=== PATIENT | female | born 1955 | race Caucasian/White ===

== ENCOUNTER 2017-08-07 07:28 | Inpatient (IN) | payer OTHER ==
[~2017-08-07] VITALS: Ht 170.2 cm; Wt 110.7 kg
[2017-08-07] MEDS ORDERED: CEFAZOLIN 2 GM IVPB PREMIX 50 ML IV ONE (07:45)
[2017-08-07] MEDS ORDERED: oxyCODONE HCL 10 MG TAB.ER.12H PO ONE ×2 (07:45→08:16)
[2017-08-07] MEDS ORDERED: ACETAMINOPHEN 500 MG TABLET PO ONE (07:45)
[2017-08-07] MEDS ORDERED: TRANEXAMIC ACID 650 MG TABLET PO ONE (07:45)
[2017-08-07] MEDS ORDERED: GABAPENTIN 300 MG CAPSULE PO ONE (07:45)
[2017-08-07] MEDS ORDERED: CELECOXIB 200 MG CAPSULE PO ONE (07:45)
[2017-08-07] MEDS ORDERED: NACL 0.9% 1,000 ML IV ONE (07:45)
[2017-08-07] MEDS ORDERED: CELECOXIB 200 MG CAPSULE ONE (08:14)
[2017-08-07] MEDS ORDERED: GABAPENTIN 300 MG CAPSULE ONE (08:15)
[2017-08-07] MEDS ORDERED: ACETAMINOPHEN 500 MG TABLET ONE (08:15)
[2017-08-07] MEDS ORDERED: TRANEXAMIC ACID 650 MG TABLET ONE (08:16)
[2017-08-07] MEDS ORDERED: POLYMYXIN 500,000/BACIT.10,000 UNITS in NS IRR 1 L IR ONE (09:18)
[2017-08-07] MEDS ORDERED: HYDR-3924 PO (10:22)
[2017-08-07] MEDS ORDERED: OMEP20CA10 PO (10:22)
[2017-08-07] MEDS ORDERED: OCUVITE PO (10:22)
[2017-08-07] MEDS ORDERED: FENO48TA4 PO (10:22)
[2017-08-07] MEDS ORDERED: AMIT10TA6 PO (10:22)
[2017-08-07] MEDS ORDERED: MIDAZOLAM HCL 5 MG/5 ML VIAL IVP PRN (11:30)
[2017-08-07] MEDS ORDERED: MEPERIDINE HCL/PF 25 MG/ML DISP.SYRIN IVP PRN (11:30)
[2017-08-07] MEDS ORDERED: MORPHINE 4 MG/ML INJ. SYRINGE IVP PRN (11:30)
[2017-08-07] MEDS ORDERED: NALOXONE HCL 0.4 MG/ML AMP (NARCAN) IVP ONE (11:30)
[2017-08-07] MEDS ORDERED: fentaNYL CITRATE/PF 100 MCG/2 ML AMP IVP PRN (11:30)
[2017-08-07] MEDS ORDERED: KETOROLAC TROMETHAMINE 30 MG VIAL IM ONE (11:30)
[2017-08-07] MEDS ORDERED: ONDANSETRON HCL 4 MG/2 ML VIAL IVP ONE ×2 (11:30→12:58)
[2017-08-07] MEDS ORDERED: D5/0.45 NS 1,000 ML IV ONE (11:57)
[2017-08-07] MEDS ORDERED: ACETAMINOPHEN 325 MG TABLET PO PRN (12:00)
[2017-08-07] MEDS ORDERED: BISACODYL 10 MG/SUPPOSITORY RC PRN (12:00)
[2017-08-07] MEDS ORDERED: LIDOCAINE 1% 10 MG/ML, 20 ML MDV INJ ONE (12:58)
[2017-08-07] MEDS ORDERED: DEXAMETHASONE SOD PHOSPHATE 4 MG/ML VIAL IVP ONE (12:58)
[2017-08-07] MEDS ORDERED: fentaNYL CITRATE 250 MCG/5 ML AMP IV ONE (12:58)
[2017-08-07] MEDS ORDERED: ROPIVACAINE HCL/PF 5 MG/ML 0.5% 30 ML VIAL INJ ONE (12:58)
[2017-08-07] MEDS ORDERED: KETOROLAC TROMETHAMINE 30 MG VIAL IVP ONE (12:58)
[2017-08-07] MEDS ORDERED: PROPOFOL 200MG/ 20ML VIAL (DIPRIVAN) IV ONE (12:58)
[2017-08-07] MEDS ORDERED: TRANEXAMIC ACID 1,000 MG/10 ML VIAL IV ONE (12:58)
[2017-08-07] MEDS ORDERED: LR 1,000 ML IV.SOLN IV ONE (12:58)
[2017-08-07] MEDS ORDERED: MEPERIDINE HCL/PF 100 MG/ML AMP IM ONE (12:58)
[2017-08-07] MEDS ORDERED: SEVOFLURANE 15 MIN GAS INH ONE (12:58)
[2017-08-07] MEDS ORDERED: MIDAZOLAM HCL 5 MG/ML VIAL (VERSED) IV ONE (12:58)
[2017-08-07] MEDS ORDERED: ROPIVACAINE 0.2% (NAROPIN) PF SOLUTION 100 ML BOTTLE EP ONE (12:58)
[2017-08-07] MEDS ORDERED: fentaNYL CITRATE/PF 100 MCG/2 ML AMP ONE (13:05)
[2017-08-07] MEDS ORDERED: MEPERIDINE HCL/PF 25 MG/ML DISP.SYRIN ONE (13:43)
--- NOTE | 2017-08-07 14:15 | NUR ---
ADMISSION NOTE Received patient from the PACU via gurney. Patient admitted with diagnosis of LTKA. Patient is awake, alert, oriented X4 . Patient oriented to hospital room, call light, toileting, pain management and safety-teach back done. Patient informed that Florencia will be her nurse and that their room number is 124-a. Personal belongings checked and Belongings List documented. Call light within reach.
[2017-08-07 14:19] VITALS: BP_SYST 153
--- NOTE | 2017-08-07 14:42 | NUR ---
CONSULT HOSPITALIST S/P WILIAM HIGHTOWER [phone] S/W LALA
[2017-08-07] MEDS: MORPHINE SULFATE 10 MG/ML VIAL IM PRN ×2 (16:01→20:06)
[2017-08-07 16:35] VITALS: BP_SYST 150
--- NOTE | 2017-08-07 16:42 | NUR ---
IS education Patient instructed on how to use the IS. Patient returned demonstration and is doing up to 1999.
[2017-08-07] MEDS: RIVAROXABAN 10 MG TABLET PO SCH (16:54)
[2017-08-07] MEDS: CEFAZOLIN 1 GM IVPB PREMIX 50 ML IV SCH ×2 (16:54→23:25)
[2017-08-07] MEDS: HYDROcodone/ACETAMIN 7.5-325 MG TAB PO PRN (17:55)
--- NOTE | 2017-08-07 18:20 | NUR ---
Closing Note Patient is resting in bed. IV is on the LFA 22g running NS@125. Left pedal pulse is palpable and the patient is able to move all the toes on the left foot. Flexi pulses and polar care are in place. call light is within reach and bed is in low position. Will endorse care to the oncoming nurse.
[2017-08-07 20:00] VITALS: BP_SYST 130
--- NOTE | 2017-08-07 20:06 | NUR ---
INITIAL CONTACT patient is alert oriented x4. IV on left forearm 20G, infusing NS at 125ml/hr. dressing on left knee clean, dry, intact. Hemovac draining red color fluid. neurovascular check done. patient complaining of pain 09/26. pain medication administered. plan of care discussed and advised patient to call PRN. patient verbalized understanding. will continue to monitor.
--- NOTE | 2017-08-07 20:45 | NUR ---
EDUCATION educated patient the importance of using IS. patient states that she knows that she has to use IS frequently, and she used it up to 3000. also educated patient the importance of keeping pillow under heel to keep leg straight and ambulating as soon as possible. also informed patient that she would need to eat sitting in chair instead of lying in bed. patient verbalized understanding.
[2017-08-07 21:15] VITALS: BP_SYST 131
--- NOTE | 2017-08-07 21:40 | NUR ---
ROUNDS patient sleeping, but easily aroused. patient states her pain is "okay." no distress noted. advised patient to call PRN. patient verbalized understanding. will continue to monitor.
--- NOTE | 2017-08-07 23:30 | NUR ---
ROUNDS patient awake, listening to audio book. patient denies pain. advised patient to call PRN. patient verbalized understanding. will continue to monitor.
[2017-08-08] MEDS: MORPHINE SULFATE 10 MG/ML VIAL IM PRN ×6 (01:16→21:12)
[2017-08-08 01:18] VITALS: BP_SYST 119
--- NOTE | 2017-08-08 01:57 | NUR ---
ROUNDS patient states that her pain is 2/10, no distress noted. advised patient to call PRN. patient's pillow adjusted under heel. will continue to monitor.
--- NOTE | 2017-08-08 04:35 | NUR ---
ROUNDS patient sleeping in bed, breathing even and unlabored. will continue to monitor. bed in lowest position, call light within reach, bed alarm on.
[2017-08-08 04:44] VITALS: BP_SYST 107
--- NOTE | 2017-08-08 06:30 | NUR ---
ROUNDS patient complained of 7/10 pain, morphine administered per order. patient's pillow readjusted to be placed under the heel. patient requested to be turned to right side. pillow placed on patient's left side. will continue to monitor. bed in lowest position, call light within reach.
--- NOTE | 2017-08-08 07:10 | NUR ---
TRANSFER TO CHAIR patient assisted transfer to chair. patient tolerated well. pillow placed under patient's heel, call light within reach. will continue to monitor.
--- NOTE | 2017-08-08 07:39 | NUR ---
END OF SHIFT Care endorsed to Florencia ESCOBEDO. informed her that patient is sitting on chair. no distress noted with patient.
--- NOTE | 2017-08-08 07:49 | NUR ---
Nutrition Update Bijan Scale 18 noted. Pt admitted for Pain in L knee Diet: regular diet BMI: 38.2 kg/m2 RD to follow per nutrition care standards.
[2017-08-08] MEDS: HYDROcodone/ACETAMIN 7.5-325 MG TAB PO PRN ×4 (08:40→20:14)
[2017-08-08] MEDS: RIVAROXABAN 10 MG TABLET PO SCH (08:40)
--- NOTE | 2017-08-08 08:45 | NUR ---
Pain med Medicated the patient with [place] for 6/10 pain. Will reassess.
[2017-08-08 09:10] VITALS: BP_SYST 116
--- NOTE | 2017-08-08 09:15 | NUR ---
TRANSFER OF CARE LATE ENTRY DUE TO PT CARE: REPORT IS RECEIVED FROM DAY SHIFT NURSE AND CARE IS ENDORSED TO MYSELF. PT IS RECEIVED AWAKE, ALERT, AND ORIENTED X4. NO SIGNS OR SYMPTOMS OF DISTRESS OR SOB NOTED. PT IS COMPLAINING OF PAIN IN KNEE AREA OF 8 OUT OF 10. WILL GIVE PRN PAIN MEDICATION WHEN DUE. WHITE BOARD IS UPDATED WITH CURRENT INFORMATION AND PLAN TO MANAGE PAIN WITH TIMES WRITTEN ON WHITE BOARD. PT HAS CPM MACHINE AND POLAR CARE. PT HAS SINGH CATHETER WITH YELLOW URINE DRAINING TO GRAVITY, APPROXIMATELY 200ML OF URINE. CURRENT NEEDS ARE MET. BED IS AT LOWEST POSITION, CALL LIGHT WITHIN REACH, THREE SIDE RAILS UP, BED ALARM IS ON. WILL CONTINUE TO MONITOR.
--- NOTE | 2017-08-08 10:45 | NUR ---
ROUNDS LATE ENTRY DUE TO PT CARE: PT IS AWAKE AND ALERT. NO SIGNS OR SYMPTOMS OF DISTRESS OR SOB NOTED. PT IS COMPLAINING OF PAIN ON LEFT KNEE OF 8 OUT OF 10 AND GAVE PRN MORPHINE IM. PT TOLERATED WELL. WILL REASSESS. CURRENT NEEDS ARE MET. BED IS AT LOWEST POSITION, CALL LIGHT WITHIN REACH, THREE SIDE RAILS UP, BED ALARM IS ON. WILL CONTINUE TO MONITOR.
[2017-08-08 12:28] VITALS: BP_SYST 99
--- NOTE | 2017-08-08 12:40 | NUR ---
ROUNDS LATE ENTRY DUE TO PT CARE: PT IS AWAKE AND ALERT. NO SIGNS OR SYMPTOMS OF DISTRESS OR SOB NOTED. PT IS COMPLAINING OF PAIN ON LEFT KNEE OF 6 OUT OF 10 AND GAVE PRN NORCO. PT TOLERATED WELL. NUEROVASCULAR CHECK DONE ON LOWER EXTREMITIES. PT IS ABLE TO WIGGLE TOES, PULSES ON FEET WERE FELT BILATERALLY. CURRENT NEEDS ARE MET. BED IS AT LOWEST POSITION, CALL LIGHT WITHIN REACH, THREE SIDE RAILS UP, BED ALARM IS ON. WILL CONTINUE TO MONITOR.
--- NOTE | 2017-08-08 13:30 | NUR ---
PT WANTS TO REMOVE CPM PT STATES SHE WANTS TO TAKE A BREAK FROM CPM. PHYSICAL THERAPIST REMOVED MACHINE. WILL CHECK PT TO APPLY CPM BACK ON.
--- NOTE | 2017-08-08 14:59 | NUR ---
62 f dx elective left knee replacement by dr ordoñez. [phone]. fww and cpm ordered from [facility]. [phone]. bryson mosher rn/cm t [phone]
--- NOTE | 2017-08-08 15:33 | NUR ---
PHYSICAL THERAPY CO-SIGN The Physical Therapy Progress Notes documented by Muffler Mechanic have been reviewed. I CONCUR W/MANUFACTURER'S REPRESENTATIVE NOTE; CONT PER TX PLAN Reviewed/Co-Signed by: China Deras PT Documentation Done by: VIN BOWEN, OLIVIA Addendum: 08/08/17 at 1534 by China Deras PT Amended: Links added.
[2017-08-08 16:15] VITALS: BP_SYST 102
--- NOTE | 2017-08-08 16:15 | NUR ---
ROUNDS PT IS AWAKE AND ALERT. NO SIGNS OR SYMPTOMS OF DISTRESS OR SOB NOTED. PT IS COMPLAINING OF PAIN ON LEFT KNEE OF 6 OUT OF 10 AND GAVE PRN NORCO. WILL REASSESS. ASSISTED PT WITH REPOSITIONING. CONDUCTED NEUROVASCULAR CHECKS ON LOWER EXTREMITIES. PT IS ABLE TO WIGGLE HER TOES, PEDAL PULSES PRESENT, TOES ARE WARM TO TOUCH BILATERALLY. CURRENT NEEDS ARE MET. BED IS AT LOWEST POSITION, CALL LIGHT WITHIN REACH, THREE SIDE RAILS UP, BED ALARM IS ON. WILL CONTINUE TO MONITOR.
--- NOTE | 2017-08-08 18:09 | NUR ---
CLOSING NOTE PT IS SLEEPING BUT IS EASILY AWAKEN. SPOUSE IS AT BEDSIDE. NO SIGNS OR SYMPTOMS OF DISTRESS OR SOB NOTED. PT STATES PAIN HAS REDUCED AND IS CURRENTLY TOLERABLE. INCENTIVE SPIROMETER IS BEING DONE DONE HOURLY AND PT IS AT 2000ML. ICE WAS PLACED ON [facility] MACHINE. PT ASSISTED WITH REPOSITIONING AND TOWEL WAS PLACED AROUND FOOT TO PREVENT IT FROM GOING OUTWARD. SINGH CATHETER DRAINING TO GRAVITY. CURRENT NEEDS ARE MET. BED IS AT LOWEST POSITION, CALL LIGHT WITHIN REACH, THREE SIDE RAILS UP, BED ALARM IS ON. WILL CONTINUE TO MONITOR.
[2017-08-08 20:00] VITALS: BP_SYST 131
--- NOTE | 2017-08-08 20:14 | NUR ---
Opening note Pt AAOx4. VSS afebrile. No acute distress noted. Pt c/o L. knee post op pain. Medicated with [place] 1tab PRN. Polar ice on. CPM machine stopped per pt request and removed. Pillow placed under L. heel. Moise cath intact and secure. IV saline lock L. AC 20G clear, patent. Call light within reach, bed low, locked position, and bed alarm on. Call light/items within easy reach. Family at bedside. Will continue to monitor pt.
--- NOTE | 2017-08-08 21:12 | NUR ---
Rounds/Pain mgmt Pt awake, c/o pain 10/27, medicated with Morphine 10mg IM as ordered. L. heel maintained elevated on pillow for support. Immediate pain relief noted per pt. Family at bedside. Call light within reach. To monitor.
[2017-08-09 00:06] VITALS: BP_SYST 124
--- NOTE | 2017-08-09 00:30 | NUR ---
Rounds Pt asleep. No s/s distress or discomfort noted. Call light within reach. Bed alarm on. To monitor.
[2017-08-09] MEDS: HYDROcodone/ACETAMIN 7.5-325 MG TAB PO PRN ×3 (01:12→12:35)
--- NOTE | 2017-08-09 02:16 | NUR ---
Rounds/Pain mgmt Pt c/o pain 09/26. Medicated with Morphine 10mg IM RUE. L. heel maintained elevated. Neuro checks intact. Call light remains within reach. Will continue to monitor.
[2017-08-09] MEDS: MORPHINE SULFATE 10 MG/ML VIAL IM PRN ×2 (02:20→10:17)
--- NOTE | 2017-08-09 04:35 | NUR ---
Rounds Pt asleep. No s/s distress or discomfort noted. L. heel elevated on pillow. Polar ice on. Safety measures in place. Will continue to monitor pt.
[2017-08-09 06:31] LABS: BASOPHILS % (AUTO) 0.4 % (0.0-2.0); EOSINOPHILS # (AUTO) 0.2 K/uL (0.0-0.4); EOSINOPHILS % (AUTO) 1.8 % (0.0-4.0); HEMATOCRIT 30.9 % (36-48); HEMOGLOBIN 10.6 g/dL (12.0-16.0); LYMPHOCYTES # (AUTO) 2.2 K/uL (1.0-5.5); LYMPHOCYTES % (AUTO) 19.4 % (20.5-51.5); MEAN CORPUSCULAR HEMOGLOBIN 29 pg (27-31); MEAN CORPUSCULAR HGB CONC 34 % (32-36); MEAN CORPUSCULAR VOLUME 86 fL (79.0-98.0); MONOCYTES # (AUTO) 1.1 K/uL (0.0-1.0); MONOCYTES % (AUTO) 9.5 % (1.7-9.3); NEUTROPHILS % (AUTO) 68.9 % (40.0-70.0); PLATELET COUNT (AUTO) 228 K/uL (130-430); RED BLOOD CELL COUNT(AUTO) 3.62 MIL/uL (4.2-6.2); RED CELL DISTRIBUTION WIDTH 12.8 % (9.0-15.0); WHITE BLOOD COUNT (AUTO) 11.5 K/uL (4.8-10.8)
[2017-08-09 06:48] LABS: ALBUMIN 3.1 g/dL (3.4-4.8); CALCIUM 8.8 mg/dL (8.4-11.0); CREATININE 0.84 mg/dL (0.55-1.30); POTASSIUM 4.6 mmol/L (3.5-5.1); TOTAL BILIRUBIN 0.7 mg/dL (0.0-1.0)
--- NOTE | 2017-08-09 06:54 | NUR ---
Closing note/DC maciej Pt asleep, easily arousable. Pt states pain is 2/10, offered pain pill but pt declined. Maciej aldridge dc'd per MD order noted 150cc celina urine. L. heel elevated on pillow. L knee minnie c/d/i. Polar ice on. Call light within reach. Will endorse to am nurse. Addendum: 08/09/17 at 0703 by Yessi Weathers RN Pt tolerated well.
--- NOTE | 2017-08-09 08:00 | NUR ---
Note Dr Young at bedside doing left knee dressing change at this time. Left knee incision intact with no drainage/bleeding at this time. Pt tolerated dressing change well. Pt has her left heel on pillow. No SOB/resp distress or left leg pain/discomfort noted at this time. IV in left AC intact and patent.
[2017-08-09 08:02] VITALS: BP_SYST 111
[2017-08-09] MEDS: RIVAROXABAN 10 MG TABLET PO SCH (08:30)
[2017-08-09 09:45] VITALS: BP_SYST 129
--- NOTE | 2017-08-09 10:00 | NUR ---
Note Pt worked with Physical therapy on ambulation and exercise. Pt sitting in recliner. No needs noted. Pt was given Morphine IM for severe left leg pain. Call light within reach.
[2017-08-09 11:22] VITALS: BP_SYST 134
[2017-08-09 12:03] VITALS: BP_SYST 134
--- NOTE | 2017-08-09 13:52 | NUR ---
PAGED DR. MC SPOKE WITH SHALINI REGARDING ONE TIME DOSE OF PAIN MEDICATION.
[2017-08-09 13:57] VITALS: BP_SYST 110
--- NOTE | 2017-08-09 14:07 | NUR ---
Note Dr Young called back and gave an order for Percocet 1 tab now.
[2017-08-09] MEDS ORDERED: OXYCODONE/ACETAMINOPHEN *10*mg/325 mg TABLET PO ONE (14:15)
--- NOTE | 2017-08-09 14:50 | NUR ---
Note Pt ambulated from bed to restroom with FWW and SOFTWARE MANAGER assisting. Pt rec'd one dose of Percocet PO at this time. Pt's went back to the house to get pt some clothes. Pt's Yossi also was given pt's prescription to fill at this pharmacy. Pt resting in recliner at this time. No needs noted. Call light within reach.
--- NOTE | 2017-08-09 15:10 | NUR ---
Note Pt's belongings packed. Pt and her checked side table and drawers for belongings. Pt given discharge instructions. Questions/concerns were answered at this time. Pt assisted in getting dressed in street clothes. Pt's IV in left AC was dc'd - cath intact. Site benign. No swelling/redness/bleeding/drainage noted at this time. Call light within reach.
--- NOTE | 2017-08-09 15:15 | NUR ---
Note Pt off the floor via wheelchair with all her belongings and FWW. Pt stable. Pain tolerable at this time. Pt ambulates comfortably with walker to restroom. No SOB/resp or severe pain/discomfort noted at this time.
--- NOTE | 2017-08-10 12:52 | NUR ---
Discharge Follow Up Phone Call CLEARANCE REPRESENTATIVE phoned patient, , and spoke with patient's son. He stated that patient was doing okay. They were unable to fill her prescription for Xarelto because only generics are covered by patient's insurance. They have a call in to Dr Young asking for approval for a generic medication. CLEARANCE REPRESENTATIVE suggested they also try calling the PCP for help. The CPM has been delivered but they had not heard from [facility]. CLEARANCE REPRESENTATIVE offered to follow up. CLEARANCE REPRESENTATIVE phoned [facility], , and spoke with James. James stated they had not received the referral. CLEARANCE REPRESENTATIVE phoned [facility], , and left a voicemail message, also faxed, (confirmation in binder), and sent an email. Added to email that patient was also unable to fill her Xarelto prescription. Security Flex Officer will follow up.
--- NOTE | 2017-08-11 11:36 | NUR ---
Discharge Follow Up Phone Call: SCULPTURE INSTRUCTOR called [facility] ([phone]) and spoke with Adriel. Adriel states that they contacted pt and made arrangements to visit pt. SCULPTURE INSTRUCTOR called and spoke with pt. Pt states that she is feeling well today. Pt confirmed that she received a call from [facility] and she is scheduled to receive a PT visit on 08/14/17. Pt states that she was able to get her prescription filled for Xarelto. Pt asked questions regarding changing her bandages. SCULPTURE INSTRUCTOR recommended that pt call Dr. Young's office today to discuss how to best care for her knee. Pt expressed understanding and states that she will call Dr. Young's office. Pt did not express any other needs or concerns and denied the need for additional follow up at this time. No further follow up phone calls required at this time.
== END 2017-08-09 15:10 | disposition home health service (06) | DRG 470 ==
LOC: SMU 07:28
PROVIDERS: ADMIT Orthopaedic Surgery; ATTEND Orthopaedic Surgery
PROC: 0SRD0J9 Replacement of Left Knee Joint with Synthetic Substitute, Cemented, Open Approach (ICD-10-PCS; principal; 2017-08-07 09:45)
DX: M17.12 Unilateral primary osteoarthritis, left knee (principal); I10 Essential (primary) hypertension; Z90.710 Acquired absence of both cervix and uterus; Z79.01 Long term (current) use of anticoagulants; Z82.61 Family history of arthritis
CPT/HCPCS: 36415; 80053; 85025; 87081; 88305; 88311; 97039; 97110-GP; 97116-GP; 97530-GP; C1713; C1776; J0690; J1100; J1885; J2001; J2175; J2250; J2270; J2405; J2704; J2795; J3010; J3490; J7030; J7120